=== PATIENT | female | born 1975 | race Caucasian/White ===

== ENCOUNTER → 2020-01-31 | Day surgery (SDC) | payer OTHER ==
[2020-01-27 12:20] LABS: BASOPHILS # (AUTO) 0.1 (0.0-0.1); BASOPHILS % 0.6 % (0.0-1.0); EOSINOPHILS # (AUTO) 0.1 (0.0-0.4); EOSINOPHILS % 1.1 % (0.0-6.0); HEMATOCRIT 40.9 % (34.2-44.1); LYMPHOCYTES # (AUTO) 2.3 (1.0-3.2); LYMPHOCYTES % 27.4 % (18.0-39.1); MEAN CORPUSCULAR HEMOGLOBIN 26.6 pg (28-32); MEAN CORPUSCULAR HGB CONC 31.8 g/dL (31-35); MEAN CORPUSCULAR VOLUME 83.6 fL (81-99); MONOCYTES # (AUTO) 0.7 (0.2-0.8); MONOCYTES % 8.2 % (4.4-11.3); NEUTROPHILS # (AUTO) 5.2 (2.1-6.9); NEUTROPHILS % 62.3 % (38.7-80.0); PLATELET COUNT 301 x10e3/uL (140-360); RED BLOOD COUNT 4.89 x10e6/uL (3.6-5.1); RED CELL DISTRIBUTION WIDTH 13.2 % (11.7-14.4)
[2020-01-27 12:37] LABS: ANION GAP 15.2 mmol/L (8-16); BLOOD UREA NITROGEN 8 mg/dL (7-26); BUN/CREATININE RATIO 10 (6-25); CARBON DIOXIDE 21 mmol/L (22-29); CHLORIDE 107 mmol/L (98-107); CREATININE, SERUM 0.81 mg/dL (0.57-1.11); EST GLOMERULAR FILTRATION RATE > 60 ML/MIN (60-); GLUCOSE 89 mg/dL (74-118); POTASSIUM 4.2 mmol/L (3.5-5.1); SODIUM 139 mmol/L (136-145)
--- NOTE | 2020-01-27 13:03 | Diagnostic Imaging Report ---
Exam: CHEST 2 VIEWS Date: 01/27/2020 12:59 PM INDICATION: ^[id number] ^[id number] ^PRE OP CLEARANCE Comparison: None FINDINGS: Lines/Tubes:None Lungs:The lungs are well inflated. No focal consolidation or pulmonary edema. Pleura:No pleural effusion. No pneumothorax. Heart/Mediastinum:The cardiomediastinal silhouette is normal in size and contour. Bones/Soft Tissues: No acute osseous abnormality. Mild multilevel degenerative changes of the spine are noted. Upper abdomen: Unremarkable. IMPRESSION: Negative for acute intrathoracic process. Signed by: Edwardo Randolph MD on 01/27/2020 1:00 PM
[~2020-01-31] MED LIST: BENTYL10 MG/1 ML PO; BUPIVACAINE HCL 0.5% INJ 30 ML VIAL INJ ONE; BUPROPION HCL100 MG PO; CEFAZOLIN SOD 1 GM/NS 50ML 100 ML IV ONE; DEXAMETHASONE SOD PHOS INJ 4 MG/ML VIAL ONE; ENSKYCE 28 TAB1 EACH PO; FENTANYL CITRATE/PF 100MCG/2 ML INJ ONE; HYDROCODONE/APAP 10MG-325MG TAB ONE; KETOROLAC TROMETHAMINE 30 MG/ML VIAL ONE; LIDOCAINE HCL 2% LOCAL INJ 5 ML SDV VIAL INJ ONE; MIDAZOLAM HCL 2 MG/2 ML VIAL ONE; NEOSTIGMINE 1 MG/ML 10ML VIAL ONE; ONDANSETRON HCL INJ 2MG/ML 2ML 2 MG/ML VIAL ONE; PROPOFOL IV EMULSION 10 MG/ML 20 ML VIAL ONE; PROPRANOLOL HCL80 MG PO; SEVOFLURANE INHAL SOLN 250 ML PEN BTL ONE; VIBERZI100 MG PO; ZOFRAN4 MG PO; ZYRTEC10 M3 PO
[2020-01-31 12:00] VITALS: BP 134/76
--- NOTE | 2020-02-07 12:16 | Operative Report ---
DATE OF PROCEDURE: 01/31/2020 SURGEON: Trevor Cazares DPM ROOM NUMBER: Outpatient at [facility]. 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 TITLE OF THE OPERATIONS: 1. Fusion of the talonavicular joint of the left foot. 2. Excision of the tarsal coalition on the dorsal lateral aspect of the left foot. ANESTHESIA: General endotracheal. HEMOSTASIS: A left thigh tourniquet to 350 mmHg. PROCEDURE IN DETAIL: The patient was taken to the operating room in a mildly sedated state, placed on the operating table in supine position. Following induction of general anesthetic, the left lower extremity was elevated to 60 degrees to exsanguinate for inflating the pneumatic thigh tourniquet to 350 mmHg to create hemostasis. The left lower extremity was placed on the operating table prior to performing following procedure. Procedure #1: All bony landmarks were mapped down utilizing an intraoperative fluoroscopy. A linear incision was made overlying the dorsal aspect of the talonavicular joint, carefully avoiding all deep and superficial bleeders and vital structures. The joint itself was remodeled with removal of all dorsal articular extensions and a bone distractor was inserted utilizing large pins. This allowed for a resection of the joint cartilage. This having been accomplished, the area was irrigated with copious amounts of sterile saline solution and the appropriate plate was selected and the area was pinned at both medial to proximal and medial to distal to allow for fixation of the plate. The patient was then extended with regard to the excision in order to remove the tarsal coalition. A very large tarsal coalition was noted between the tarsal bones including the calcaneocuboid joint. Through evaluation and separate dissection that joint was then identified and the tarsal coalition resected, irrigated with copious amounts of sterile saline solution. Once again, this was a separate area. The attention was then directed back to the talonavicular joint where large cystic lesions were noted within the bone itself. A VBM bone matrix was used to pack the cystic lesions and the joint which had been prepped for fusion. A lag screw was advanced across the joint and then a locking plate for compression, it was applied on the dorsal aspect of the talonavicular joint. This was particularly a TN plate. The screws used were 3.5 mm, 24 and 20 locking. A 22 nonlocking for compression and then 18, 20, and 22 locking all to hold the bone and plate in proper alignment. This having been accomplished, the area was irrigated with copious amounts of sterile saline solution. The lateral aspect was further remodeled and irrigated. Deep closure and capsular repair with 3-0 Vicryl, subcutaneous closure with 4-0 Vicryl, and skin closure with 4-0 nylon. The areas of surgery were then blocked with 0.5 Marcaine and Decadron [place], released pneumatic thigh tourniquet, showed a normal hyperemic flush to all digits of the left foot and the appropriate mildly compressive dressings were applied with the addition of a posterior splint. The patient left the operating room with vital signs stable in apparent satisfactory condition. The patient tolerated both the anesthetic and procedure very well. AILYN Thorne/VIRIDIANA /[id number]
== END | disposition home or self-care (01) ==
LOC: OR 06:25
PROVIDERS: ATTEND Podiatrist Foot Surgery
DX: M19.072 Primary osteoarthritis, left ankle and foot (principal); G57.52 Tarsal tunnel syndrome, left lower limb; K58.9 Irritable bowel syndrome, unspecified; K29.70 Gastritis, unspecified, without bleeding; F32.9 Major depressive disorder, single episode, unspecified; F41.9 Anxiety disorder, unspecified; Z01.810 Encounter for preprocedural cardiovascular examination; Z01.812 Encounter for preprocedural laboratory examination; Z01.818 Encounter for other preprocedural examination; Z11.59 Encounter for screening for other viral diseases
CPT/HCPCS: 28116; 28740; 36415; 71046; 76000; 80048; 81025; 85025; 93005; C1713; J0690; J1100; J1885; J2001; J2250; J2405; J2704; J2710; J3010; U0002

== ENCOUNTER → 2020-10-09 | Day surgery (SDC) | payer OTHER ==
[~2020-10-09] MED LIST changes: -HYDROCODONE/APAP 10MG-325MG TAB ONE; +HYDROCORTISONE28 GM PO; +POVIDONE IODINE 0.05% 0.05 % ML PO ONE
[2020-10-09 09:15] VITALS: BP 119/71
== END | disposition home or self-care (01) ==
LOC: OR 05:34
PROVIDERS: ATTEND Podiatrist Foot Surgery
DX: T84.84XA Pain due to internal orthopedic prosthetic devices, implants and grafts, initial encounter (principal); T84.498A Other mechanical complication of other internal orthopedic devices, implants and grafts, initial encounter; K58.9 Irritable bowel syndrome, unspecified; Y83.8 Other surgical procedures as the cause of abnormal reaction of the patient, or of later complication, without mention of misadventure at the time of the procedure; Z88.6 Allergy status to analgesic agent; Z88.2 Allergy status to sulfonamides; Z88.8 Allergy status to other drugs, medicaments and biological substances; Z01.810 Encounter for preprocedural cardiovascular examination; Z01.812 Encounter for preprocedural laboratory examination; Z20.822 Contact with and (suspected) exposure to COVID-19
CPT/HCPCS: 20680; 76000; 81025; 93005; J0690; J1100; J1885; J2001; J2250; J2405; J2704; J2710; J3010; U0002